=== PATIENT | male | born 1985 | race African-American/Black ===

== ENCOUNTER 2021-09-27 15:59 | Emergency (ER) | payer OTHER ==
[~2021-09-27] VITALS: Ht 182.9 cm; Wt 109.3 kg
[~2021-09-27 15:59] MED LIST: ALPR1TAB
[2021-09-27 16:10] VITALS: BP 135/89
== END 2021-09-27 16:23 | disposition left against medical advice (07) ==
LOC: ER 16:02
DX: R10.30 Lower abdominal pain, unspecified (principal); Z53.21 Procedure and treatment not carried out due to patient leaving prior to being seen by health care provider